=== PATIENT | female | born 1975 | race American Indian/Alaskan Native ===

== ENCOUNTER 2017-08-11 12:27 | Emergency (ER) | payer MEDICAID, MEDICARE ==
[2017-08-11 13:21] VITALS: BP 133/83
[2017-08-11] MEDS ORDERED: ULTRAM PO ONE (16:38)
--- NOTE | 2017-08-11 16:47 | Emergency Department Report ---
ED Lower Extremity HPI - General Chief Complaint: Extremity Injury, Lower Stated Complaint: KNEE PAIN X MONTHS Time Seen by Provider: 08/11/17 16:06 Source: patient Mode of arrival: Ambulatory Limitations: No Limitations - History of Present Illness Initial Comments: pt is a 42 y/o aaf with hx left knee pain chronic x 2 yrs , obesity, osteoarthritis, ashtma, copd, and ged, presents for left knee pain requesting referral to orthopedics pt denies new fall injury or trauma pt has pcp but advised previous orthopedic doctor no longer accepting insurance. pt advised left knee exacerbated by prolong standing walking and stair climbing, Complaint: knee injury Onset/Timin -: year(s), unknown (chronic over 2 yrs ) Injury: Knee: Left Type of Injury: other (twisted 2 y rs ago ) Place: home Severity: moderate Severity scale (0 -10): 4 Improves With: rest Worsens With: weight bearing, movement, palpation Context: other (twisted ) Associated Symptoms: swelling - Related Data Previous Rx's Medication Instructions Recorded Last Taken Type Permethrin 5% [Acticin 5% CREAM] 60 gm TP DAILY #60 tube 01/24/14 Unknown Rx Permethrin 5% [Acticin 5% CREAM] 1 applicatio TP ONCE #60 gram 02/01/14 Unknown Rx hydrOXYzine HCL [Atarax] 25 mg PO Q6HR PRN #10 tablet 02/01/14 Unknown Rx predniSONE [Deltasone] 20 mg PO QDAY #5 tab 02/01/14 Unknown Rx Sulfamethoxazole/Trimethoprim 1 each PO BID #10 tablet 09/27/15 Unknown Rx [Bactrim DS TAB] hydrOXYzine HCL [Atarax] 25 mg PO Q6HR PRN #10 tablet 09/27/15 Unknown Rx Acetaminophen/Codeine [Tylenol #3] 1 tab PO Q6H PRN #20 tab 01/24/16 Unknown Rx Ibuprofen [Motrin] 600 mg PO Q8H PRN #40 tablet 01/24/16 Unknown Rx Loratadine [Claritin] 10 mg PO DAILY #30 tablet 01/24/16 Unknown Rx predniSONE [Deltasone] 50 mg PO QDAY #5 tab 01/24/16 Unknown Rx HYDROcodone/APAP 5-325 [[place] 1 each PO Q4HR PRN #10 tablet 01/29/16 Unknown Rx 5/325] Cephalexin [Keflex] 500 mg PO Q8HR #21 cap 08/08/16 Unknown Rx Cyclobenzaprine [Flexeril] 10 mg PO TID PRN #30 tablet 08/11/17 Unknown Rx Naproxen 500 mg PO BID PRN #60 tablet 08/11/17 Unknown Rx Allergies Allergy/AdvReac Type Severity Reaction Status Date / Time cinnamon Allergy Swelling Verified 08/11/17 13:19 onion Allergy Swelling Verified 08/11/17 13:19 tomato Allergy Itching Verified 08/11/17 13:19 ED Review of Systems ROS: Stated complaint: KNEE PAIN X MONTHS Other details as noted in HPI Constitutional: denies: chills, fever Eyes: denies: eye pain, eye discharge, vision change ENT: denies: ear pain, throat pain Respiratory: denies: cough, shortness of breath, wheezing Cardiovascular: denies: chest pain, palpitations Endocrine: no symptoms reported Gastrointestinal: denies: abdominal pain, nausea, diarrhea Genitourinary: denies: urgency, dysuria, discharge Musculoskeletal: arthralgia, other (left knee pain ) Skin: denies: rash, lesions Neurological: denies: headache, weakness, paresthesias Psychiatric: denies: anxiety, depression Hematological/Lymphatic: denies: easy bleeding, easy bruising ED Past Medical Hx - Past Medical History Hx GERD: Yes Hx Arthritis: Yes Hx Asthma: Yes Hx COPD: Yes Additional medical history: Eczema. OBESITY - Surgical History Hx Cholecystectomy: Yes Hx Breast Surgery: Yes (REDUCTION) Additional Surgical History: rotator cuff injury - Social History Smoking Status: Never Smoker Substance Use Type: None - Medications Home Medications: Home Medications Medication Instructions Recorded Confirmed Last Taken Type Permethrin 5% [Acticin 5% CREAM] 60 gm TP DAILY #60 tube 01/24/14 Unknown Rx Permethrin 5% [Acticin 5% CREAM] 1 applicatio TP ONCE #60 gram 02/01/14 Unknown Rx hydrOXYzine HCL [Atarax] 25 mg PO Q6HR PRN #10 tablet 02/01/14 Unknown Rx predniSONE [Deltasone] 20 mg PO QDAY #5 tab 02/01/14 Unknown Rx Sulfamethoxazole/Trimethoprim 1 each PO BID #10 tablet 09/27/15 Unknown Rx [Bactrim DS TAB] hydrOXYzine HCL [Atarax] 25 mg PO Q6HR PRN #10 tablet 09/27/15 Unknown Rx Acetaminophen/Codeine [Tylenol #3] 1 tab PO Q6H PRN #20 tab 01/24/16 Unknown Rx Ibuprofen [Motrin] 600 mg PO Q8H PRN #40 tablet 01/24/16 Unknown Rx Loratadine [Claritin] 10 mg PO DAILY #30 tablet 01/24/16 Unknown Rx predniSONE [Deltasone] 50 mg PO QDAY #5 tab 01/24/16 Unknown Rx HYDROcodone/APAP 5-325 [[place] 1 each PO Q4HR PRN #10 tablet 01/29/16 Unknown Rx 5/325] Cephalexin [Keflex] 500 mg PO Q8HR #21 cap 08/08/16 Unknown Rx Cyclobenzaprine [Flexeril] 10 mg PO TID PRN #30 tablet 08/11/17 Unknown Rx Naproxen 500 mg PO BID PRN #60 tablet 08/11/17 Unknown Rx ED Physical Exam - General Limitations: No Limitations General appearance: alert, in no apparent distress - Head Head exam: Present: atraumatic, normocephalic - Eye Eye exam: Present: normal appearance - ENT ENT exam: Present: mucous membranes moist - Neck Neck exam: Present: normal inspection - Respiratory Respiratory exam: Present: normal lung sounds bilaterally. Absent: respiratory distress - Cardiovascular Cardiovascular Exam: Present: regular rate, normal rhythm. Absent: systolic murmur, diastolic murmur, rubs, gallop - GI/Abdominal GI/Abdominal exam: Present: soft, normal bowel sounds - Rectal Rectal exam: Present: deferred - Extremities Exam Extremities exam: Present: full ROM, tenderness (left anterior knee pain with flexion ), normal capillary refill. Absent: pedal edema, joint swelling, calf tenderness - Expanded Lower Extremity Exam Left Knee exam: Present: normal inspection, tenderness (medial anterior knee pain to palpation ), pain w/ pronation/supination, full knee extension. Absent: swelling, abrasion, laceration, ecchymosis, deformity, crepidus, dislocation, erythema, effusion, posterior draw sign, pain/laxity with valgus, pain/laxity with varus Lower Leg exam: Present: normal inspection, full ROM. Absent: tenderness Ankle exam: Present: normal inspection, full ROM. Absent: tenderness Foot/Toe exam: Present: normal inspection, full ROM. Absent: tenderness Neuro vascular tendon exam: Present: no vascular compromise. Absent: pulse deficit, abnormal cap refill, motor deficit, sensory deficit, tendon deficit, extremity cold to touch, pallor, abnormal 2-point discrimination, decreased fine /light touch, foot drop, peroneal nerve deficit, significant pain with passive ROM of distal joint Gait: Positive: observed and normal, observed and limited by pain - Back Exam Back exam: Present: normal inspection, full ROM. Absent: tenderness, CVA tenderness (R), CVA tenderness (L), muscle spasm, paraspinal tenderness, vertebral tenderness, rash noted - Neurological Exam Neurological exam: Present: alert, oriented X3, CN II-XII intact, reflexes normal. Absent: motor sensory deficit - Psychiatric Psychiatric exam: Present: normal affect, normal mood - Skin Skin exam: Present: warm, dry, intact, normal color. Absent: rash ED Course Vital Signs 08/11/17 13:19 Temperature 98.3 F Pulse Rate 90 Respiratory 18 Rate Blood Pressure 133/83 O2 Sat by Pulse 99 Oximetry ED Lower Extremity MDM - Medical Decision Making pt is a 42 y/o aaf with hx left knee pain chronic x 2 yrs , obesity, osteoarthritis, ashtma, copd, and ged, presents for left knee pain requesting referral to orthopedics pt denies new fall injury or trauma pt has pcp but advised previous orthopedic doctor no longer accepting insurance. pt advised 4/ 10 left knee exacerbated by prolong standing walking and stair climbing, pt appears well nontoxic with nad left knee no swelling no ecchymosis no deformity no drawer mild pain to external rotation , pt is ambulatory to base line per patient, there has been no new fall injury or trauma, plan, naproxen, flexeril, prn, knee exercises, referral to orthopedic Dr. Aguirre in 2-3 days, pt verbalized agreement and understanding and agreement with same. Critical care attestation.: If time is entered above; I have spent that time in minutes in the direct care of this critically ill patient, excluding procedure time. ED Disposition Clinical Impression: Chronic pain of left knee Disposition: DC-01 TO HOME OR SELFCARE Is pt being admited?: No Does the pt Need Aspirin: No Condition: Good Instructions: Knee Exercises (GEN), Arthralgia (ED), Knee Pain (ED) Prescriptions: Cyclobenzaprine [Flexeril] 10 mg PO TID PRN #30 tablet PRN Reason: Muscle Spasm Naproxen 500 mg PO BID PRN #60 tablet PRN Reason: Pain , Severe (7-10) Referrals: JUAN CARLOS FARR JR, MD [Primary Care Provider] - 3-5 Days Forms: Work/School Release Form(ED) Time of Disposition: 17:02
== END 2017-08-11 17:15 | disposition home or self-care (01) ==
LOC: ED 12:27
DX: M25.562 Pain in left knee (principal); G89.29 Other chronic pain; K21.9 Gastro-esophageal reflux disease without esophagitis; M19.90 Unspecified osteoarthritis, unspecified site; J45.909 Unspecified asthma, uncomplicated; E66.9 Obesity, unspecified; Z91.018 Allergy to other foods
CPT/HCPCS: 99282

== ENCOUNTER 2018-02-26 09:04 | Emergency (ER) | payer MEDICAID, MEDICARE ==
[2018-02-26 09:27] VITALS: BP 121/48
[2018-02-26] MEDS ORDERED: ULTRAM PO ONE (11:20)
--- NOTE | 2018-02-26 11:20 | XRay Report ---
LEFT ANKLE RADIOGRAPHS INDICATION: Twisted ankle. Pain and swelling. COMPARISON: 04/27/2012. FINDINGS: AP, lateral and oblique left ankle radiographs again demonstrate intact ankle mortise, malleoli and talar dome contour. Mild diffuse ankle soft tissue swelling also again noted, lateral slightly more than medial. Large dorsal and small to moderate plantar calcaneal spurs also again noted. Dorsal midfoot spurring is new. Approximately 0.6 cm ossific density at the fifth metatarsal base appears corticated, though also an interval finding. CONCLUSION: 1. Diffuse left ankle soft tissue swelling again noted, possibly any combination of acute on chronic in the given setting, as described. Please correlate. 2. Various degenerative changes also noted, new/increased involving the midfoot, as above. Thank you for the opportunity to participate in this patient's care.
--- NOTE | 2018-02-26 11:46 | Emergency Department Report ---
HPI - General Chief Complaint: Extremity Injury, Lower Time Seen by Provider: 02/26/18 11:05 - HPI HPI: The patient is a 42-year-old female presents for evaluation of ankle pain. The patient reports left ankle pain since midnight last night she twisted her ankle at home. She complains of severe 10/10 in severity pain, throbbing in quality, exacerbated with weightbearing ambulation, improved with rest. She denies, injury elsewhere, paresthesia, motor deficit, color change in the leg or foot. ED Past Medical Hx - Past Medical History Hx GERD: Yes Hx Arthritis: Yes Hx Asthma: Yes Hx COPD: Yes Additional medical history: Eczema. OBESITY - Surgical History Hx Cholecystectomy: Yes Hx Breast Surgery: Yes (REDUCTION) Additional Surgical History: rotator cuff injury - Social History Smoking Status: Former Smoker Substance Use Type: Alcohol - Medications Home Medications: Home Medications Medication Instructions Recorded Confirmed Last Taken Type Permethrin 5% [Acticin 5% CREAM] 60 gm TP DAILY #60 tube 01/24/14 Unknown Rx Permethrin 5% [Acticin 5% CREAM] 1 applicatio TP ONCE #60 gram 02/01/14 Unknown Rx hydrOXYzine HCL [Atarax] 25 mg PO Q6HR PRN #10 tablet 02/01/14 Unknown Rx predniSONE [Deltasone] 20 mg PO QDAY #5 tab 02/01/14 Unknown Rx Sulfamethoxazole/Trimethoprim 1 each PO BID #10 tablet 09/27/15 Unknown Rx [Bactrim DS TAB] hydrOXYzine HCL [Atarax] 25 mg PO Q6HR PRN #10 tablet 09/27/15 Unknown Rx Acetaminophen/Codeine [Tylenol #3] 1 tab PO Q6H PRN #20 tab 01/24/16 Unknown Rx Ibuprofen [Motrin] 600 mg PO Q8H PRN #40 tablet 01/24/16 Unknown Rx Loratadine [Claritin] 10 mg PO DAILY #30 tablet 01/24/16 Unknown Rx predniSONE [Deltasone] 50 mg PO QDAY #5 tab 01/24/16 Unknown Rx HYDROcodone/APAP 5-325 [[place] 1 each PO Q4HR PRN #10 tablet 01/29/16 Unknown Rx 5/325] Cephalexin [Keflex] 500 mg PO Q8HR #21 cap 08/08/16 Unknown Rx Cyclobenzaprine [Flexeril] 10 mg PO TID PRN #30 tablet 08/11/17 Unknown Rx Naproxen 500 mg PO BID PRN #60 tablet 08/11/17 Unknown Rx Ibuprofen [Motrin] 800 mg PO Q8HR PRN #15 tablet 02/26/18 Unknown Rx traMADol [Ultram 50 MG tab] 50 mg PO Q6HR PRN #15 tablet 02/26/18 Unknown Rx ED Review of Systems ROS: Stated complaint: ANKLE/KNEE PAIN Other details as noted in HPI Constitutional: denies: fever ENT: denies: throat or neck pain Respiratory: denies: cough, shortness of breath Cardiovascular: denies: chest pain Endocrine: denies unexplained weight loss or gain Gastrointestinal: denies: abdominal pain, nausea Genitourinary: denies: dysuria Musculoskeletal: reports ankle pain denies: leg swelling Skin: denies: rash Neurological: denies: headache Hematological/Lymphatic: denies: easy bleeding or easy bruising Psych: denies sadness or hopelessness Physical Exam - Physical Exam Vital Signs: Vital Signs 02/26/18 09:23 Temperature 98.3 F Pulse Rate 118 H Respiratory 16 Rate Blood Pressure 121/48 O2 Sat by Pulse 99 Oximetry Physical Exam: General: well-nourished, well-developed, no acute distress Head: Normocephalic, atraumatic Eyes: normal sclera ENT: Mucous membranes are pink and moist Neck: trachea midline, neck supple, No neck stiffness, no cervical adenopathy Respiratory: Breath sounds equal bilaterally, no wheezing, rales, or rhonchi Cardio: S1 and S2 present, no murmurs, rubs, gallops, capillary refill is brisk Musc: left ankle lateral malleolus tenderness to palpation present, mild swelling present, no obvious deformity, sensation, motor first, and positive intact in the foot and toes distal to the ankle injury Skin: No rash Psych: Normal affect ED Course Vital Signs 02/26/18 09:23 Temperature 98.3 F Pulse Rate 118 H Respiratory 16 Rate Blood Pressure 121/48 O2 Sat by Pulse 99 Oximetry ED Medical Decision Making - Medical Decision Making The patient was seen and examined by myself. The patient is placed on a radiation monitor and continuous pulse ox. On initial evaluation, the patient was found to be in no distress. Evaluation orders were placed. The patient given pain medicine. X-ray of the left ankle is negative for acute fracture and is grossly unchanged from previous extremity years ago. Midfoot arthritis is increase, but no signs of osteomyelitis, normal alignment, or fracture. The patient was reevaluated and reported that their symptoms were markedly improved. The patient is stable for discharge with outpatient follow-up. The patient is given follow-up and return instructions. The patient expressed understanding and agreed with the plan. The patient is discharged in stable condition. Critical care attestation.: If time is entered above; I have spent that time in minutes in the direct care of this critically ill patient, excluding procedure time. ED Disposition Clinical Impression: Acute left ankle pain Sprain of left ankle Qualifiers: Encounter type: initial encounter Involved ligament of ankle: unspecified ligament Qualified Code(s): S93.402A - Sprain of unspecified ligament of left ankle, initial encounter Disposition: TO HOME OR SELFCARE Is pt being admited?: No Does the pt Need Aspirin: No Condition: Stable Instructions: Arthralgia (ED), Osteoarthritis (ED) Referrals: JUAN CARLOS FARR JR, MD [Primary Care Provider] - 3-5 Days DUARTE PINEDA MD [Staff Physician] - 3-5 Days Time of Disposition: 11:44
== END 2018-02-26 11:56 | disposition home or self-care (01) ==
LOC: ED 09:04
DX: S93.402A Sprain of unspecified ligament of left ankle, initial encounter (principal); K21.9 Gastro-esophageal reflux disease without esophagitis; M19.90 Unspecified osteoarthritis, unspecified site; J44.9 Chronic obstructive pulmonary disease, unspecified; Z90.49 Acquired absence of other specified parts of digestive tract; Z91.018 Allergy to other foods; Z87.891 Personal history of nicotine dependence; X50.9XXA Other and unspecified overexertion or strenuous movements or postures, initial encounter; Y93.89 Activity, other specified; Y99.8 Other external cause status; Y92.89 Other specified places as the place of occurrence of the external cause
CPT/HCPCS: 99284

== ENCOUNTER 2020-03-11 12:20 | Emergency (ER) | payer MEDICARE ==
[2020-03-11 12:35] VITALS: BP 153/81
[2020-03-11] MEDS ORDERED: LIDOCAINE (2%) 20 MG/1 ML VIAL 20 ML MDV INFILTRATI ONE (13:25)
--- NOTE | 2020-03-11 13:29 | Emergency Department Report ---
Abscess Boil HPI - HPI Chief Complaint: Skin/Abscess/Foreign Body Stated Complaint: BOIL Time Seen by Provider: 03/11/20 12:50 Location: Other (Left labia majora) Severity: Mild History: Yes Pain, No Fever, No Purulent Drainage, No Numbness, No Foreign Body, No Previous History, No Insect Bite HPI: This is a 44-year-old female nontoxic, well nourished in appearance, no acute signs of distress presents to the ED with c/o of redness and pain and swelling to left labia majora. Patient denies any pus or drainage. Patient denies any fever, chills, nausea, vomiting, chest pain, shortness of breath, headache or stiff neck. Patient denies any allergies or significant past medical history. Home Medications: Previous Rx's Medication Instructions Recorded Last Taken Type Permethrin 5% [Acticin 5% CREAM] 60 gm TP DAILY #60 tube 01/24/14 Unknown Rx Permethrin 5% [Acticin 5% CREAM] 1 applicatio TP ONCE #60 gram 02/01/14 Unknown Rx hydrOXYzine HCL [Atarax] 25 mg PO Q6HR PRN #10 tablet 02/01/14 Unknown Rx predniSONE [Deltasone] 20 mg PO QDAY #5 tab 02/01/14 Unknown Rx Sulfamethoxazole/Trimethoprim 1 each PO BID #10 tablet 09/27/15 Unknown Rx [Bactrim DS TAB] hydrOXYzine HCL [Atarax] 25 mg PO Q6HR PRN #10 tablet 09/27/15 Unknown Rx Acetaminophen/Codeine [Tylenol #3] 1 tab PO Q6H PRN #20 tab 01/24/16 Unknown Rx Ibuprofen [Motrin] 600 mg PO Q8H PRN #40 tablet 01/24/16 Unknown Rx Loratadine (Nf) [Claritin (Nf)] 10 mg PO DAILY #30 tablet 01/24/16 Unknown Rx predniSONE [Deltasone] 50 mg PO QDAY #5 tab 01/24/16 Unknown Rx HYDROcodone/APAP 5-325 [[place] 1 each PO Q4HR PRN #10 tablet 01/29/16 Unknown Rx 5/325] cephALEXin [Keflex] 500 mg PO Q8HR #21 cap 08/08/16 Unknown Rx Cyclobenzaprine [Flexeril] 10 mg PO TID PRN #30 tablet 08/11/17 Unknown Rx Naproxen 500 mg PO BID PRN #60 tablet 08/11/17 Unknown Rx Ibuprofen [Motrin] 800 mg PO Q8HR PRN #15 tablet 02/26/18 Unknown Rx traMADoL [Ultram 50 MG tab] 50 mg PO Q6HR PRN #15 tablet 02/26/18 Unknown Rx Acetaminophen/Codeine [Tylenol 1 tab PO Q6H PRN #12 tab 03/11/20 Unknown Rx /Codeine # 3 tab] Sulfamethoxazole/Trimethoprim 1 each PO BID #14 tablet 03/11/20 Unknown Rx [Bactrim DS TAB] Allergies/Adverse Reactions: Allergies Allergy/AdvReac Type Severity Reaction Status Date / Time cinnamon Allergy Swelling Verified 08/11/17 13:19 onion Allergy Swelling Verified 08/11/17 13:19 tomato Allergy Itching Verified 08/11/17 13:19 ED Review of Systems ROS: Stated complaint: BOIL Other details as noted in HPI Constitutional: denies: chills, fever Eyes: denies: eye pain, eye discharge, vision change ENT: denies: ear pain, throat pain Respiratory: denies: cough, shortness of breath, wheezing Cardiovascular: denies: chest pain, palpitations Endocrine: no symptoms reported Gastrointestinal: denies: abdominal pain, nausea, diarrhea Genitourinary: denies: urgency, dysuria, discharge Musculoskeletal: denies: back pain, joint swelling, arthralgia Skin: denies: rash, lesions Neurological: denies: headache, weakness, paresthesias Psychiatric: denies: anxiety, depression Hematological/Lymphatic: denies: easy bleeding, easy bruising ED Past Medical Hx - Past Medical History Previous Medical History?: Yes Hx GERD: Yes Hx Arthritis: Yes Hx Asthma: Yes Hx COPD: Yes Additional medical history: Eczema. OBESITY - Surgical History Past Surgical History?: Yes Hx Cholecystectomy: Yes Hx Breast Surgery: Yes (REDUCTION) Additional Surgical History: rotator cuff injury - Social History Smoking Status: Never Smoker Substance Use Type: None - Medications Home Medications: Home Medications Medication Instructions Recorded Confirmed Last Taken Type Permethrin 5% [Acticin 5% CREAM] 60 gm TP DAILY #60 tube 01/24/14 Unknown Rx Permethrin 5% [Acticin 5% CREAM] 1 applicatio TP ONCE #60 gram 02/01/14 Unknown Rx hydrOXYzine HCL [Atarax] 25 mg PO Q6HR PRN #10 tablet 02/01/14 Unknown Rx predniSONE [Deltasone] 20 mg PO QDAY #5 tab 02/01/14 Unknown Rx Sulfamethoxazole/Trimethoprim 1 each PO BID #10 tablet 09/27/15 Unknown Rx [Bactrim DS TAB] hydrOXYzine HCL [Atarax] 25 mg PO Q6HR PRN #10 tablet 09/27/15 Unknown Rx Acetaminophen/Codeine [Tylenol #3] 1 tab PO Q6H PRN #20 tab 01/24/16 Unknown Rx Ibuprofen [Motrin] 600 mg PO Q8H PRN #40 tablet 01/24/16 Unknown Rx Loratadine (Nf) [Claritin (Nf)] 10 mg PO DAILY #30 tablet 01/24/16 Unknown Rx predniSONE [Deltasone] 50 mg PO QDAY #5 tab 01/24/16 Unknown Rx HYDROcodone/APAP 5-325 [[place] 1 each PO Q4HR PRN #10 tablet 01/29/16 Unknown Rx 5/325] cephALEXin [Keflex] 500 mg PO Q8HR #21 cap 08/08/16 Unknown Rx Cyclobenzaprine [Flexeril] 10 mg PO TID PRN #30 tablet 08/11/17 Unknown Rx Naproxen 500 mg PO BID PRN #60 tablet 08/11/17 Unknown Rx Ibuprofen [Motrin] 800 mg PO Q8HR PRN #15 tablet 02/26/18 Unknown Rx traMADoL [Ultram 50 MG tab] 50 mg PO Q6HR PRN #15 tablet 02/26/18 Unknown Rx Acetaminophen/Codeine [Tylenol 1 tab PO Q6H PRN #12 tab 03/11/20 Unknown Rx /Codeine # 3 tab] Sulfamethoxazole/Trimethoprim 1 each PO BID #14 tablet 03/11/20 Unknown Rx [Bactrim DS TAB] ED Abscess Boil Physical Exam - Exam General: Vital signs noted. No distress. Alert and acting appropriately. Size: 2 cm Exam: Yes Tenderness, Yes Fluctuance, Yes Normal Neurologic Exam, Yes Normal Circulation, No Surrounding Cellulites/Erythema, No Lymphangitis, No Crepitation, No Heart Murmur Exam: Tristen Anderson RN present during exam. I & D Note - I & D Note I & D Note: Under sterile field, I used Betadine to cleanse the area. I then used 2% lidocaine plain with 25-gauge 5/8 needle to inject area for anesthetic purposes. Total volume injected 3 mL. I then used an 11 blade to make a 1 cm incision. About 2 mL's of purulent drainage has been noted. I then used a hemostat to break the abscess formation. I then used sterile 0.9% normal saline flush to flush the wound with total volume of 40 mL used. I then put a 1/4 iodoform packing to the incision. A sterile 4 x 4 with tape has been applied as dressing. Bleeding is under control. Patient tolerated the procedure well with no signs of distress noted. Configuration Management Consultant Monica GANDARA present during procedure. ED Course Vital Signs 03/11/20 12:31 Temperature 98.5 F Pulse Rate 101 H Respiratory 20 Rate Blood Pressure 153/81 O2 Sat by Pulse 100 Oximetry - Reevaluation(s) Reevaluation #1: 03/11/20 13:28 Patient is speaking in full sentences with no signs of distress noted. Critical care attestation.: If time is entered above; I have spent that time in minutes in the direct care of this critically ill patient, excluding procedure time. ED Medical Decision Making - Medical Decision Making This is a 44-year-old female that presents with abscess. Patient is stable and was examined by me. This is incision and drainage and has been performed and patient tolerated well. A sterile dressing has been applied. Patient was educated on proper wound care. Patient is discharged with Bactrim and Tylenol with codeine and was instructed not to operate any machinery while taking Tylenol with codeine due to drowsiness. Patient was instructed to return in 2 days for packing removal. Patient was instructed to refer to Follow-up with a primary care doctor in 3-5 days or if symptoms worsen and continue return to emergency room as soon as possible. At time of discharge, the patient does not seem toxic or ill in appearance. No acute signs of distress noted. Patient agrees to discharge treatment plan of care. No further questions noted by the patient. ED Disposition Clinical Impression: Labial abscess, Encounter for incision and drainage procedure Disposition: TO HOME OR SELFCARE Is pt being admited?: No Does the pt Need Aspirin: No Condition: Stable Instructions: Incision and Drainage (ED), Acetaminophen/Codeine (By mouth) Additional Instructions: Follow-up with a primary care doctor in 3-5 days or if symptoms worsen and continue return to emergency room as soon as possible. Do not operate any machinery while taking Tylenol with codeine as this may cause drowsiness. Return in 2 days for packing removal. Prescriptions: Sulfamethoxazole/Trimethoprim [Bactrim DS TAB] 1 each PO BID #14 tablet Acetaminophen/Codeine [Tylenol /Codeine # 3 tab] 1 tab PO Q6H PRN #12 tab PRN Reason: Pain , Severe (7-10) Referrals: PRIMARY CAREMD [Primary Care Provider] - 3-5 Days TERI FLORENTINO MD [Staff Physician] - 3-[address] [facility] [Provider Group] - 3-5 Days Forms: Work/School Release Form(ED)
== END 2020-03-11 13:51 | disposition home or self-care (01) ==
LOC: ED 12:20
DX: N76.4 Abscess of vulva (principal); K21.9 Gastro-esophageal reflux disease without esophagitis; M19.91 Primary osteoarthritis, unspecified site; J44.9 Chronic obstructive pulmonary disease, unspecified; E66.9 Obesity, unspecified; Z68.42 Body mass index [BMI] 45.0-49.9, adult; Z90.49 Acquired absence of other specified parts of digestive tract; Z98.890 Other specified postprocedural states; Z79.1 Long term (current) use of non-steroidal anti-inflammatories (NSAID); Z79.899 Other long term (current) drug therapy; Z91.018 Allergy to other foods

== ENCOUNTER 2020-06-22 13:26 | Emergency (ER) | payer MEDICARE ==
[2020-06-22 14:05] VITALS: BP 163/94
[2020-06-22 21:10] LABS: Bacteria,Urine 1+ /HPF (Negative); Bilirubin,Urine NEG (Negative); Blood,Urine LG (Negative); Color,Urine Yellow (Yellow); Mucus,Urine FEW /HPF; Urobilinogen,Urine < 2.0 mg/dL (<2.0)
[2020-06-22 21:13] LABS: WBC,Urine > 182.0 /HPF (0.0-6.0)
[2020-06-22 21:15] LABS: HCG Qualitative,Urine Negative (Negative)
--- NOTE | 2020-06-22 21:28 | Emergency Department Report ---
ED Abdominal Pain HPI - General Chief Complaint: Abdominal Pain Stated Complaint: RT KIDNEY/NAUSEA Time Seen by Provider: 06/22/20 20:08 Source: patient Mode of arrival: Ambulatory Limitations: No Limitations - History of Present Illness Initial Comments: 45-year-old -[place] female presents to the emergency room complaining of right flank pain that began yesterday. Patient complains of nausea and vomited x1 yesterday. She does admit to some dysuria. She denies any fever chills. Patient has taking nothing for pain. She states that she does drink lots of water. Complaint: flank pain Onset/Timin -: days(s) Location: R flank Radiation: none - Related Data Previous Rx's Medication Instructions Recorded Last Taken Type Permethrin 5% [Acticin 5% CREAM] 60 gm TP DAILY #60 tube 01/24/14 Unknown Rx Permethrin 5% [Acticin 5% CREAM] 1 applicatio TP ONCE #60 gram 02/01/14 Unknown Rx hydrOXYzine HCL [Atarax] 25 mg PO Q6HR PRN #10 tablet 02/01/14 Unknown Rx predniSONE [Deltasone] 20 mg PO QDAY #5 tab 02/01/14 Unknown Rx Sulfamethoxazole/Trimethoprim 1 each PO BID #10 tablet 09/27/15 Unknown Rx [Bactrim DS TAB] hydrOXYzine HCL [Atarax] 25 mg PO Q6HR PRN #10 tablet 09/27/15 Unknown Rx Acetaminophen/Codeine [Tylenol #3] 1 tab PO Q6H PRN #20 tab 01/24/16 Unknown Rx Ibuprofen [Motrin] 600 mg PO Q8H PRN #40 tablet 01/24/16 Unknown Rx Loratadine (Nf) [Claritin (Nf)] 10 mg PO DAILY #30 tablet 01/24/16 Unknown Rx predniSONE [Deltasone] 50 mg PO QDAY #5 tab 01/24/16 Unknown Rx HYDROcodone/APAP 5-325 [[place] 1 each PO Q4HR PRN #10 tablet 01/29/16 Unknown Rx 5/325] cephALEXin [Keflex] 500 mg PO Q8HR #21 cap 08/08/16 Unknown Rx Cyclobenzaprine [Flexeril] 10 mg PO TID PRN #30 tablet 08/11/17 Unknown Rx Naproxen 500 mg PO BID PRN #60 tablet 08/11/17 Unknown Rx Ibuprofen [Motrin] 800 mg PO Q8HR PRN #15 tablet 02/26/18 Unknown Rx traMADoL [Ultram 50 MG tab] 50 mg PO Q6HR PRN #15 tablet 02/26/18 Unknown Rx Acetaminophen/Codeine [Tylenol 1 tab PO Q6H PRN #12 tab 03/11/20 Unknown Rx /Codeine # 3 tab] Sulfamethoxazole/Trimethoprim 1 each PO BID #14 tablet 03/11/20 Unknown Rx [Bactrim DS TAB] Nitrofurantoin [place]/M-Cryst 100 mg PO Q12HR 10 Days #20 capsule 06/22/20 Unknown Rx [Macrobid CAP] Phenazopyridine [Pyridium] 100 mg PO TID #6 tab 06/22/20 Unknown Rx Allergies Allergy/AdvReac Type Severity Reaction Status Date / Time cinnamon Allergy Swelling Verified 08/11/17 13:19 onion Allergy Swelling Verified 08/11/17 13:19 tomato Allergy Itching Verified 08/11/17 13:19 ED Review of Systems ROS: Stated complaint: RT KIDNEY/NAUSEA Other details as noted in HPI ED Past Medical Hx - Past Medical History Hx GERD: Yes Hx Arthritis: Yes Hx Asthma: Yes Hx COPD: Yes Additional medical history: Eczema. OBESITY - Surgical History Hx Cholecystectomy: Yes Hx Breast Surgery: Yes (REDUCTION) Additional Surgical History: rotator cuff injury - Social History Smoking Status: Never Smoker Substance Use Type: None - Medications Home Medications: Home Medications Medication Instructions Recorded Confirmed Last Taken Type Permethrin 5% [Acticin 5% CREAM] 60 gm TP DAILY #60 tube 01/24/14 Unknown Rx Permethrin 5% [Acticin 5% CREAM] 1 applicatio TP ONCE #60 gram 02/01/14 Unknown Rx hydrOXYzine HCL [Atarax] 25 mg PO Q6HR PRN #10 tablet 02/01/14 Unknown Rx predniSONE [Deltasone] 20 mg PO QDAY #5 tab 02/01/14 Unknown Rx Sulfamethoxazole/Trimethoprim 1 each PO BID #10 tablet 09/27/15 Unknown Rx [Bactrim DS TAB] hydrOXYzine HCL [Atarax] 25 mg PO Q6HR PRN #10 tablet 09/27/15 Unknown Rx Acetaminophen/Codeine [Tylenol #3] 1 tab PO Q6H PRN #20 tab 01/24/16 Unknown Rx Ibuprofen [Motrin] 600 mg PO Q8H PRN #40 tablet 01/24/16 Unknown Rx Loratadine (Nf) [Claritin (Nf)] 10 mg PO DAILY #30 tablet 01/24/16 Unknown Rx predniSONE [Deltasone] 50 mg PO QDAY #5 tab 01/24/16 Unknown Rx HYDROcodone/APAP 5-325 [[place] 1 each PO Q4HR PRN #10 tablet 01/29/16 Unknown Rx 5/325] cephALEXin [Keflex] 500 mg PO Q8HR #21 cap 08/08/16 Unknown Rx Cyclobenzaprine [Flexeril] 10 mg PO TID PRN #30 tablet 08/11/17 Unknown Rx Naproxen 500 mg PO BID PRN #60 tablet 08/11/17 Unknown Rx Ibuprofen [Motrin] 800 mg PO Q8HR PRN #15 tablet 02/26/18 Unknown Rx traMADoL [Ultram 50 MG tab] 50 mg PO Q6HR PRN #15 tablet 02/26/18 Unknown Rx Acetaminophen/Codeine [Tylenol 1 tab PO Q6H PRN #12 tab 03/11/20 Unknown Rx /Codeine # 3 tab] Sulfamethoxazole/Trimethoprim 1 each PO BID #14 tablet 03/11/20 Unknown Rx [Bactrim DS TAB] Nitrofurantoin [place]/M-Cryst 100 mg PO Q12HR 10 Days #20 capsule 06/22/20 Unknown Rx [Macrobid CAP] Phenazopyridine [Pyridium] 100 mg PO TID #6 tab 06/22/20 Unknown Rx ED Physical Exam - General Limitations: No Limitations General appearance: alert, in no apparent distress - Head Head exam: Present: atraumatic, normocephalic - Eye Eye exam: Present: normal appearance - ENT ENT exam: Present: mucous membranes moist - Cardiovascular Cardiovascular Exam: Present: regular rate, normal rhythm. Absent: systolic murmur, diastolic murmur, rubs, gallop - GI/Abdominal GI/Abdominal exam: Present: soft, normal bowel sounds - Back Exam Back exam: Present: normal inspection, CVA tenderness (R) - Neurological Exam Neurological exam: Present: alert, oriented X3 - Psychiatric Psychiatric exam: Present: normal affect, normal mood - Skin Skin exam: Present: warm, dry, intact, normal color. Absent: rash ED Course Vital Signs 06/22/20 14:03 Temperature 97.6 F Pulse Rate 95 H Respiratory 20 Rate Blood Pressure 163/94 O2 Sat by Pulse 99 Oximetry ED Medical Decision Making - Lab Data Laboratory Tests 06/22/20 Unknown Urine Color Yellow Urine Turbidity Cloudy Urine pH 5.0 Ur Specific [place] 1.017 Urine Protein 100 mg/dl Urine Glucose (UA) >=500 Urine Ketones Tr Urine Blood Lg Urine Nitrite Pos Urine Bilirubin Neg Urine Urobilinogen < 2.0 Ur Leukocyte Esterase Lg Urine WBC (Auto) > 182.0 H Urine RBC (Auto) 67.0 U Epithel Cells (Auto) 1.0 Urine Bacteria (Auto) 1+ Urine Mucus Few Urine Yeast (Budding) 2+ Urine HCG, Qual Negative - Medical Decision Making 45-year-old -[place] female presents to the emergency room complaining of right flank pain that began yesterday. Patient complains of nausea and vomited x1 yesterday. She does admit to some dysuria. She denies any fever chills. Patient has taking nothing for pain. She states that she does drink lots of water. Critical care attestation.: If time is entered above; I have spent that time in minutes in the direct care of this critically ill patient, excluding procedure time. ED Disposition Clinical Impression: UTI (urinary tract infection) Disposition: DC-01 TO HOME OR SELFCARE Is pt being admited?: No Does the pt Need Aspirin: No Condition: Stable Instructions: Abdominal Pain (ED), Urinary Tract Infection in Women (ED) Additional Instructions: Urine is positive for urinary tract infection. Please complete your antibiotics you can take the Pyridium for the dysuria or painful urination. It is very important that you increase your water intake advance your diet as tolerated. Be sure to do void after intercourse and wipe front to back. Follow-up with your primary care provider for repeat urinalysis in 5 days. Prescriptions: Nitrofurantoin [place]/M-Cryst [Macrobid CAP] 100 mg PO Q12HR 10 Days #20 capsule Phenazopyridine [Pyridium] 100 mg PO TID #6 tab Referrals: GOSIA RIDDLE MD [Primary Care Provider] - 3-5 Days Forms: Work/School Release Form(ED)
== END 2020-06-22 21:49 | disposition home or self-care (01) ==
LOC: ED 13:26
DX: N39.0 Urinary tract infection, site not specified (principal); K21.9 Gastro-esophageal reflux disease without esophagitis; M19.91 Primary osteoarthritis, unspecified site; J44.9 Chronic obstructive pulmonary disease, unspecified; Z90.49 Acquired absence of other specified parts of digestive tract; Z98.890 Other specified postprocedural states; Z79.1 Long term (current) use of non-steroidal anti-inflammatories (NSAID); Z79.899 Other long term (current) drug therapy; Z91.018 Allergy to other foods
CPT/HCPCS: 81001; 81025

== ENCOUNTER 2021-12-08 12:39 | Emergency (ER) | payer MEDICARE ==
[2021-12-08 13:39] VITALS: BP 154/92
[2021-12-08] MEDS ORDERED: ACETAMINOPHEN W/CODEINE 300-30 MG TAB PO ONE (15:18)
[2021-12-08] MEDS ORDERED: SULFAMETHOXAZOLE/TRIMETHOPRIM 800/160MG DS TAB PO ONE (15:19)
--- NOTE | 2021-12-08 15:25 | Emergency Department Report ---
- General Chief complaint: Skin/Abscess/Foreign Body Stated complaint: BOIL BETWEEN THIGHS Time Seen by Provider: 12/08/21 14:43 Source: patient Mode of arrival: Ambulatory Limitations: No Limitations - History of Present Illness Initial comments: 46-year-old black female with a past medical history of diabetes, hyperlipidemia, hypertension, and GERD with presents to the emergency department for evaluation of left groin abscess. She states that she first noticed it on yesterday, so she placed a warm compress there overnight and when she woke up this morning, area was larger and more painful. No drainage noted. She states that she has had abscesses in the past but is usually able to drain them on her own. She states that she has been taking her diabetes medication, but her blood glucose has been elevated running between 250 to 290. She denies fever. complaint: abscess/boil -: Gradual, days(s) (1) Tetanus Up to Date: yes Location: genitals (Left groin area) Severity: severe Severity scale (0 -10): 9 Quality: aching Consistency: constant Worsens with: palpation, movement Context: other (Elevated blood glucose) Associated symptoms: denies other symptoms Treatments Prior to Arrival: other (Moist heat) - Related Data Previous Rx's Medication Instructions Recorded Last Taken Type Permethrin 5% [Acticin 5% CREAM] 60 gm TP DAILY #60 tube 01/24/14 Unknown Rx Permethrin 5% [Acticin 5% CREAM] 1 applicatio TP ONCE #60 gram 02/01/14 Unknown Rx hydrOXYzine HCL [Atarax] 25 mg PO Q6HR PRN #10 tablet 02/01/14 Unknown Rx predniSONE [Deltasone] 20 mg PO QDAY #5 tab 02/01/14 Unknown Rx Sulfamethoxazole/Trimethoprim 1 each PO BID #10 tablet 09/27/15 Unknown Rx [Bactrim DS TAB] hydrOXYzine HCL [Atarax] 25 mg PO Q6HR PRN #10 tablet 09/27/15 Unknown Rx Acetaminophen/Codeine [Tylenol #3] 1 tab PO Q6H PRN #20 tab 01/24/16 Unknown Rx Ibuprofen [Motrin] 600 mg PO Q8H PRN #40 tablet 01/24/16 Unknown Rx Loratadine (Nf) [Claritin (Nf)] 10 mg PO DAILY #30 tablet 01/24/16 Unknown Rx predniSONE [Deltasone] 50 mg PO QDAY #5 tab 01/24/16 Unknown Rx HYDROcodone/APAP 5-325 [[place] 1 each PO Q4HR PRN #10 tablet 01/29/16 Unknown Rx 5/325] cephALEXin [Keflex] 500 mg PO Q8HR #21 cap 08/08/16 Unknown Rx Cyclobenzaprine [Flexeril] 10 mg PO TID PRN #30 tablet 08/11/17 Unknown Rx Naproxen 500 mg PO BID PRN #60 tablet 08/11/17 Unknown Rx Ibuprofen [Motrin] 800 mg PO Q8HR PRN #15 tablet 02/26/18 Unknown Rx traMADoL [Ultram 50 MG tab] 50 mg PO Q6HR PRN #15 tablet 02/26/18 Unknown Rx Acetaminophen/Codeine [Tylenol 1 tab PO Q6H PRN #12 tab 03/11/20 Unknown Rx /Codeine # 3 tab] Sulfamethoxazole/Trimethoprim 1 each PO BID #14 tablet 03/11/20 Unknown Rx [Bactrim DS TAB] Nitrofurantoin [place]/M-Cryst 100 mg PO Q12HR 10 Days #20 capsule 06/22/20 Unknown Rx [Macrobid CAP] Phenazopyridine [Pyridium] 100 mg PO TID #6 tab 06/22/20 Unknown Rx Sulfamethoxazole/Trimethoprim 1 each PO BID #20 tab 12/08/21 Unknown Rx [Bactrim DS TAB] Allergies Allergy/AdvReac Type Severity Reaction Status Date / Time cinnamon Allergy Swelling Verified 08/11/17 13:19 onion Allergy Swelling Verified 08/11/17 13:19 tomato Allergy Itching Verified 08/11/17 13:19 Abscess Boil HPI - HPI Chief Complaint: Skin/Abscess/Foreign Body Stated Complaint: BOIL BETWEEN THIGHS Time Seen by Provider: 12/08/21 14:43 Duration: 1 Day Location: Other (Left groin area) History: Yes Pain, Yes Previous History, No Fever, No Purulent Drainage, No Numbness, No Foreign Body, No Insect Bite Home Medications: Previous Rx's Medication Instructions Recorded Last Taken Type Permethrin 5% [Acticin 5% CREAM] 60 gm TP DAILY #60 tube 01/24/14 Unknown Rx Permethrin 5% [Acticin 5% CREAM] 1 applicatio TP ONCE #60 gram 02/01/14 Unknown Rx hydrOXYzine HCL [Atarax] 25 mg PO Q6HR PRN #10 tablet 02/01/14 Unknown Rx predniSONE [Deltasone] 20 mg PO QDAY #5 tab 02/01/14 Unknown Rx Sulfamethoxazole/Trimethoprim 1 each PO BID #10 tablet 09/27/15 Unknown Rx [Bactrim DS TAB] hydrOXYzine HCL [Atarax] 25 mg PO Q6HR PRN #10 tablet 09/27/15 Unknown Rx Acetaminophen/Codeine [Tylenol #3] 1 tab PO Q6H PRN #20 tab 01/24/16 Unknown Rx Ibuprofen [Motrin] 600 mg PO Q8H PRN #40 tablet 01/24/16 Unknown Rx Loratadine (Nf) [Claritin (Nf)] 10 mg PO DAILY #30 tablet 01/24/16 Unknown Rx predniSONE [Deltasone] 50 mg PO QDAY #5 tab 01/24/16 Unknown Rx HYDROcodone/APAP 5-325 [[place] 1 each PO Q4HR PRN #10 tablet 01/29/16 Unknown Rx 5/325] cephALEXin [Keflex] 500 mg PO Q8HR #21 cap 08/08/16 Unknown Rx Cyclobenzaprine [Flexeril] 10 mg PO TID PRN #30 tablet 08/11/17 Unknown Rx Naproxen 500 mg PO BID PRN #60 tablet 08/11/17 Unknown Rx Ibuprofen [Motrin] 800 mg PO Q8HR PRN #15 tablet 02/26/18 Unknown Rx traMADoL [Ultram 50 MG tab] 50 mg PO Q6HR PRN #15 tablet 02/26/18 Unknown Rx Acetaminophen/Codeine [Tylenol 1 tab PO Q6H PRN #12 tab 03/11/20 Unknown Rx /Codeine # 3 tab] Sulfamethoxazole/Trimethoprim 1 each PO BID #14 tablet 03/11/20 Unknown Rx [Bactrim DS TAB] Nitrofurantoin [place]/M-Cryst 100 mg PO Q12HR 10 Days #20 capsule 06/22/20 Unknown Rx [Macrobid CAP] Phenazopyridine [Pyridium] 100 mg PO TID #6 tab 06/22/20 Unknown Rx Sulfamethoxazole/Trimethoprim 1 each PO BID #20 tab 12/08/21 Unknown Rx [Bactrim DS TAB] Allergies/Adverse Reactions: Allergies Allergy/AdvReac Type Severity Reaction Status Date / Time cinnamon Allergy Swelling Verified 08/11/17 13:19 onion Allergy Swelling Verified 08/11/17 13:19 tomato Allergy Itching Verified 08/11/17 13:19 ED Review of Systems ROS: Stated complaint: BOIL BETWEEN THIGHS Other details as noted in HPI Comment: All other systems reviewed and negative Constitutional: denies: chills, diaphoresis, fever, malaise Eyes: denies: eye pain ENT: denies: ear pain Respiratory: denies: cough, orthopnea, shortness of breath Cardiovascular: denies: chest pain, palpitations, dyspnea on exertion, orthopnea, edema, syncope, paroxysmal nocturnal dyspnea Endocrine: no symptoms reported Gastrointestinal: denies: abdominal pain, nausea, vomiting, diarrhea, hem atemesis, melena, hematochezia Genitourinary: denies: urgency, dysuria, frequency, hematuria, discharge Musculoskeletal: denies: back pain, joint swelling Skin: denies: rash, lesions, change in color, change in hair/nails, pruritus Neurological: denies: headache, weakness, numbness, paresthesias Psychiatric: denies: anxiety Hematological/Lymphatic: denies: easy bleeding, easy bruising ED Past Medical Hx - Past Medical History Hx GERD: Yes Hx Arthritis: Yes Hx Asthma: Yes Hx COPD: Yes Additional medical history: Eczema. OBESITY - Surgical History Hx Cholecystectomy: Yes Hx Breast Surgery: Yes (REDUCTION) Additional Surgical History: rotator cuff injury - Social History Smoking Status: Never Smoker Substance Use Type: None - Medications Home Medications: Home Medications Medication Instructions Recorded Confirmed Last Taken Type Permethrin 5% [Acticin 5% CREAM] 60 gm TP DAILY #60 tube 01/24/14 Unknown Rx Permethrin 5% [Acticin 5% CREAM] 1 applicatio TP ONCE #60 gram 02/01/14 Unknown Rx hydrOXYzine HCL [Atarax] 25 mg PO Q6HR PRN #10 tablet 02/01/14 Unknown Rx predniSONE [Deltasone] 20 mg PO QDAY #5 tab 02/01/14 Unknown Rx Sulfamethoxazole/Trimethoprim 1 each PO BID #10 tablet 09/27/15 Unknown Rx [Bactrim DS TAB] hydrOXYzine HCL [Atarax] 25 mg PO Q6HR PRN #10 tablet 09/27/15 Unknown Rx Acetaminophen/Codeine [Tylenol #3] 1 tab PO Q6H PRN #20 tab 01/24/16 Unknown Rx Ibuprofen [Motrin] 600 mg PO Q8H PRN #40 tablet 01/24/16 Unknown Rx Loratadine (Nf) [Claritin (Nf)] 10 mg PO DAILY #30 tablet 01/24/16 Unknown Rx predniSONE [Deltasone] 50 mg PO QDAY #5 tab 01/24/16 Unknown Rx HYDROcodone/APAP 5-325 [[place] 1 each PO Q4HR PRN #10 tablet 01/29/16 Unknown Rx 5/325] cephALEXin [Keflex] 500 mg PO Q8HR #21 cap 08/08/16 Unknown Rx Cyclobenzaprine [Flexeril] 10 mg PO TID PRN #30 tablet 08/11/17 Unknown Rx Naproxen 500 mg PO BID PRN #60 tablet 08/11/17 Unknown Rx Ibuprofen [Motrin] 800 mg PO Q8HR PRN #15 tablet 02/26/18 Unknown Rx traMADoL [Ultram 50 MG tab] 50 mg PO Q6HR PRN #15 tablet 02/26/18 Unknown Rx Acetaminophen/Codeine [Tylenol 1 tab PO Q6H PRN #12 tab 03/11/20 Unknown Rx /Codeine # 3 tab] Sulfamethoxazole/Trimethoprim 1 each PO BID #14 tablet 03/11/20 Unknown Rx [Bactrim DS TAB] Nitrofurantoin [place]/M-Cryst 100 mg PO Q12HR 10 Days #20 capsule 06/22/20 Unknown Rx [Macrobid CAP] Phenazopyridine [Pyridium] 100 mg PO TID #6 tab 06/22/20 Unknown Rx Sulfamethoxazole/Trimethoprim 1 each PO BID #20 tab 12/08/21 Unknown Rx [Bactrim DS TAB] ED Physical Exam - General Limitations: No Limitations General appearance: alert, in no apparent distress - Head Head exam: Present: atraumatic, normocephalic - Eye Eye exam: Present: normal appearance. Absent: conjunctival injection - Neck Neck exam: Present: normal inspection - Respiratory Respiratory exam: Present: normal lung sounds bilaterally. Absent: respiratory distress, chest wall tenderness - Cardiovascular Cardiovascular Exam: Present: regular rate, normal heart sounds - GI/Abdominal GI/Abdominal exam: Present: soft, normal bowel sounds. Absent: distended, tenderness, guarding, rebound - External exam: Present: other (Abscess noted to left perineal area in groin next to lower thigh) - Expanded Exam Expanded image: 1 - Abscessed area with edematous area noted to be 4 cm in diameter, tender to any touch, and fluctuant in the center. No erythema or drainage noted. - Extremities Exam Extremities exam: Present: normal inspection - Back Exam Back exam: Present: normal inspection. Absent: CVA tenderness (R), CVA tenderness (L) - Neurological Exam Neurological exam: Present: alert, oriented X3 - Psychiatric Psychiatric exam: Present: normal affect, normal mood, depressed - Skin Skin exam: Present: warm, dry, intact, normal color ED Course Vital Signs 12/08/21 13:36 Temperature 98.7 F Pulse Rate 94 H Respiratory 18 Rate Blood Pressure 154/92 [Right] O2 Sat by Pulse 98 Oximetry - I & D Left Lower Groin Site: Left groin area Blade Size: 11 I & D Procedure: betadine prep Progress: Area cleaned with saline and Betadine. Anesthetized with 1% lidocaine without epinephrine using a field block. Then single incision made to fluctuant center of abscess and copious amounts of serosanguineous drainage noted. Area noted to be flatter with some swelling still noted and edges noted to be firm. Area was then cleaned again and covered with sterile gauze. Patient tolerated well. No complications noted. ED Medical Decision Making - Medical Decision Making 46-year-old black female with a past medical history of diabetes, hyperlipidemia, hypertension, and GERD with presents to the emergency department for evaluation of left groin abscess. She states that she first noticed it on yesterday, so she placed a warm compress there overnight and when she woke up this morning, area was larger and more painful. No drainage noted. She states that she has had abscesses in the past but is usually able to drain them on her own. She states that she has been taking her diabetes medication, but her blood glucose has been elevated running between 250 to 290. She denies fever. I&D of left groin abscess performed for copious amounts of serosanguineous drainage. Area still with some swelling, tenderness, firmness. She will be treated with 10-day course of Bactrim. She was advised to monitor blood glucose and keep it in better control because elevated blood sugar hinders healing of and aids in recurrence of abscesses. She was advised to take medications as prescribed and follow-up with primary care provider if no improvement or worsening symptoms. She verbalized understanding of and agreement with plan of care. Critical care attestation.: If time is entered above; I have spent that time in minutes in the direct care of this critically ill patient, excluding procedure time. ED Disposition Clinical Impression: Abscess of groin, left Disposition: HOME / SELF CARE / HOMELESS Is pt being admited?: No Does the pt Need Aspirin: No Condition: Stable Instructions: Skin Abscess, [id number], Incision and Drainage, Care After, Incision Care, Adult, [id number] Additional Instructions: Take medications as prescribed. Monitor blood glucose closely. Elevated blood glucose can hinder healing of abscess. Follow-up with primary care provider if no improvement or worsening symptoms. Return to the emergency department if you develop fever, fatigue, or any concerning symptoms. Prescriptions: Sulfamethoxazole/Trimethoprim [Bactrim DS TAB] 1 each PO BID #20 tab Referrals: JUAN CARLOS FARR JR, MD [Primary Care Provider] - 3-5 Days Time of Disposition: 15:25
== END 2021-12-08 15:54 | disposition home or self-care (01) ==
LOC: ED 12:39
DX: L02.214 Cutaneous abscess of groin (principal); Z91.018 Allergy to other foods
CPT/HCPCS: 99282